=== PATIENT | female | born 1950 | race Caucasian/White ===

== ENCOUNTER 2018-07-25 05:51 | Observation (INO) ==
[~2018-07-25 05:51] MED LIST: LIDOCAINE W/ SODIUM BICARB 0.5 ML SYR ONE; Lactated Ringers 1,000 ML PRIMARY IV ONE; ceFAZolin Inj 2gm (Premix) 2 GM/50 ML BAG IV ONE
[2018-07-25] MEDS ORDERED: Lactated Ringers 1,000 ML PRIMARY IV SCH ×2 (06:00→11:30)
[2018-07-25] MEDS ORDERED: Nasal Sanitizer POPSWAB ampule 3 AMP (Nozin) PREOP DOSE ENOS SCH (06:00)
[2018-07-25] MEDS ORDERED: ceFAZolin Inj 2gm (Premix) 2 GM/50 ML BAG IV ONE (06:00)
[2018-07-25 06:17] LABS: BILIRUBIN,URINE NEGATIVE (NEG); CLARITY,URINE CLEAR (CLEAR); COLOR,URINE YELLOW (Y); GLUCOSE, URINE (UA) NEGATIVE (NEG); OCCULT BLOOD,URINE NEGATIVE (NEG); PH,URINE 5.5 (5.0-8.5); PROTEIN,URINE NEGATIVE (NEG); UROBILINOGEN,URINE 0.2 EU/dL (0.2)
[2018-07-25 06:25] LABS: RBC,URINE 0 /hpf; SQUAMOUS EPITHELIAL CELL,UR MODERATE; URINE SAMPLE TYPE CLEAN CATCH URINE
[2018-07-25] MEDS: LIDOCAINE W/ SODIUM BICARB 0.5 ML SYR SUBD ONE (06:30)
[2018-07-25] MEDS ORDERED: Sodium Chloride 0.9% vial 20 ML ONE (07:06)
[2018-07-25] MEDS ORDERED: BUPivacaine Liposome/PF (Exparel) Inj 20ml vial INFIL ONE (07:07)
[2018-07-25] MEDS ORDERED: BACITRACIN 50,000 UNIT VIAL IRRIG ONE ×2 (07:07→08:21)
[2018-07-25] MEDS ORDERED: BUPIVACAINE 0.25% W/ EPI - 10 ML VIAL ONE (07:08)
[2018-07-25] MEDS ORDERED: BUPivacaine Inj 0.5% PF (5mg/ml) 30ml vial ONE (07:12)
[2018-07-25] MEDS ORDERED: MIDAZOLAM HCL 2 MG/2 ML VIAL ONE (07:16)
[2018-07-25] MEDS ORDERED: ROCURONIUM 10 MG/1 ML - 5 ML VIAL IVP ONE (07:28)
[2018-07-25] MEDS ORDERED: Ketorolac Inj 30 MG, Morphine Inj (Ortho Cocktail) 5 MG, BUPivacaine Inj 0.25% PF 150 MG SPLASH ONE ×3 (07:30)
[2018-07-25] MEDS ORDERED: Sodium Chloride 0.9% vial 10 ML ONE (08:20)
[2018-07-25] MEDS ORDERED: ceFAZolin Inj 1 GM in Sodium Chloride 0.9% 100 ML IV ONE (08:38)
[2018-07-25] MEDS ORDERED: fentaNYL Inj 100 MCG/2 ML VIAL ONE (10:44)
--- NOTE | 2018-07-25 11:01 | ORTHO.OP ---
Surgery Date: 07/25/18 Preoperative Diagnosis: Right shoulder GH OA Postoperative Diagnosis: same Procedure: Right reverse TSA Surgeon: Juan Daniel Cheema MD Pricing Director: Sherin Cuevas PA-C Anesthesia Provider: Ishmael Carrillo MD Anesthesia Type: General, Regional Estimated Blood Loss (mL): 200 Fluids: 1500 mL Pathology: none Findings: See Operative Note Indications: See Operative Note Complications: None
[2018-07-25] MEDS ORDERED: HYDROmorphone 2 MG/1 ML IVP PRN (11:24)
[2018-07-25] MEDS ORDERED: fentaNYL Inj 100 MCG/2 ML VIAL IVP PRN (11:24)
[2018-07-25] MEDS ORDERED: LIDOCAINE W/ SODIUM BICARB 0.5 ML SYR SUBD PRN (11:24)
--- NOTE | 2018-07-25 11:30 | CRNA.PROCE ---
Nerve Block Documentation - - Safety Measures: Time Out Taken, Site Verified - - Type of Nerve Block Used: Right Interscalene Block Moniters Used During Block: SPO2, NIBP Oxygen Supplemented: Yes Sedation Used - Enter Amount in Comment Field [ANES.SEDAT]: Midazolam (mg): Yes (4mg) Skin Prep Used: ChloroPrep Draped: No Technique: Ultrasound Nerve Block Needle Used: EchoM-Audio 50 mm Stimulation Hz: 1 Stimulation Staring mA: 1 Stimulation Ending mA: 0.6 Local Anesthetic - Enter Amt in Comment Field [ANES.LOCNB]: 0.5 % Bupivacaine Plain (mL): Yes (30ml) - - PreOp Block : Time In: 07:10 PreOp Block : Time Out: 07:28 Anesthesia Time - Other Weight: 116.755 kg Height: 5 ft 4 in Body Mass Index (BMI): 44.1
--- NOTE | 2018-07-25 11:33 | CRNA.PROGR ---
Anesthesia Time - Procedure/Recovery Time Start Date: 07/25/18 End Date: 07/25/18 Anesthesia : Time In: 07:30 Anesthesia : Time Out: 11:18 Anesthesia : Total Time: 228 - Block Time PreOp Block : Time In: 07:10 PreOp Block : Time Out: 07:28 - Total Anesthesia Time Total Anesthesia Time (minutes): 228 - Other Weight: 116.755 kg Height: 5 ft 4 in Body Mass Index (BMI): 44.1 Physical Status: P3 Anesthesia Type: General Anesthesia : ET PostOp Pain Management: Brachial Plexus (Single Injection) (Brachial Plexus Block for Post op analgesia per surgeon request)
--- NOTE | 2018-07-25 11:34 | CRNA.PROGR ---
Anesthesia Recovery Phase I - Post Anesthesia Evaluation Patient's Condition on Arrival in Phase I: Stable Pain Level: 0
[2018-07-25] MEDS ORDERED: ONDANSETRON 4 MG/2 ML VIAL IVP PRN (12:36)
[2018-07-25] MEDS ORDERED: DOCUSATE 100 MG CAPSULE PO PRN (12:36)
[2018-07-25] MEDS ORDERED: BISACODYL 5 MG TABLET PO PRN (12:36)
[2018-07-25] MEDS ORDERED: LIDOCAINE HCL 2 % 10 ML JELLY URO-JECT TOPICAL PRN (12:36)
--- NOTE | 2018-07-25 14:26 | CONSULT ---
Consult Note - Consult Consult Date: 07/25/18 Reason for Consult: PostOp Consulation : Ortho Requesting Physician: Dr. Cheema Primary Care Provider: NONE NONE - History of Present Illness History of Present Illness: This is a 68 years old female with medical history significant for history of diabetes, hypertension, hypercholesterolemia, sleep apnea on oxygen at night, history of arthritis who came in to the hospital to have reverse right total shoulder arthroplasty and was done by Dr. Cheema today. The hospitalist service were consulted for management of medical issues. Patient was seen postop eratively. Patient denied complaint. There was no pain in the shoulder, nausea, pain elsewhere. HPI - History of Present Illness Date of Service: 08/01/18 Time of Service: 14:00 Past Medical History Medical History: 1. Diabetes. 2. Hypertension. 3. Hypercholesterolemia. 4. History of sleep apnea on oxygen and CPAP at night. 5. History of anxiety/depression Surgical History: 1. History of appendectomy. 2. History of hysterectomy. 3. History of deviated septum surgery. 4. History of spinal fusion Family History: Reviewed an Not Pertinent Past Social History: Does not smoke, does not drink no drugs. Lives in [place]. Tobacco Use: Never Smoker In the Past 12 Months, Have Used or Abuse Any of the Following Substance: None Alcohol Use: None Review of Systems - Review of Systems All Systems: Reviewed & No Additional Complaints Except as Stated Medication / Allergies Home Medications: Home Medications Medication Instructions Recorded Confirmed Type Aspirin [Aspir 81] 81 mg PO DAILY 07/29/11 07/25/18 History Citalopram Hydrobromide 10 mg PO DAILY 07/29/11 07/25/18 History [Citalopram Hbr] Losartan/Hydrochlorothiazide 0.5 each PO DAILY 07/29/11 07/25/18 History [HYZAAR] metFORMIN ER Tab [GLUCOPHAGE XR] 1,000 mg PO BID 07/29/11 07/25/18 History Omeprazole 20 mg PO DAILY 08/05/11 07/25/18 History Atorvastatin Calcium 1 tab PO DAILY tab 02/16/16 07/25/18 History Cholecalciferol [Vitamin D3] 1 cap PO QD cap 02/16/16 07/25/18 History Diclofenac Sodium [Diclofenac 100 mg PO BID tab 02/16/16 07/25/18 History Sodium Er] Magnesium Oxide [Magnesium] 250 mg PO QD tab 02/16/16 07/25/18 History [place]-3 Fatty Acids/Fish Oil 1 each PO QD cap 02/16/16 07/25/18 History [[place] 3 1,000 Mg Softgel] Gabapentin 600 mg PO .SEE INSTRUCTI BELOW 07/24/18 07/25/18 History Hydrocodone/Acetaminophen 1 - 2 ea PO Q4-6H PRN #70 tab 07/25/18 Rx [Hydrocodon-Acetaminoph 7.5-325] Allergies/Adverse Reactions: Allergies Allergy/AdvReac Type Severity Reaction Status Date / Time meperidine HCl [From Demerol] Allergy Severe Anaphylaxis Verified 07/24/18 10:13 cinnamon Allergy Intermediate Difficulty Verified 07/24/18 10:13 Swallowing corn Allergy Intermediate Difficulty Verified 07/24/18 10:13 Swallowing corn syrup Allergy Intermediate Difficulty Verified 07/24/18 10:13 Swallowing egg Allergy Intermediate Difficulty Verified 07/24/18 10:13 Swallowing pineapple Allergy Intermediate Difficulty Verified 07/24/18 10:13 Swallowing raspberry Allergy Intermediate Difficulty Verified 07/24/18 10:13 Swallowing walnut Allergy Difficulty Verified 07/24/18 10:13 Swallowing AXITHROMYCIN Allergy Intermediate Hives Uncoded 07/24/18 10:13 COOKED CARROTS Allergy Intermediate Difficulty Uncoded 07/24/18 10:13 Swallowing MOST FISH Allergy Intermediate Difficulty Uncoded 07/24/18 10:13 Swallowing .ALL NARCOTICS AdvReac Intermediate Other : Uncoded 07/24/18 10:17 See Comment Exam - Vitals Vital Signs: Vital Signs Temperature 98 F Temperature Source Temporal Artery Scan Pulse Rate [Pulse Oximeter 77 Left] Pulse Rate 85 Respiratory Rate 21 Blood Pressure [Left Radial 131/79 Artery] Blood Pressure 126/76 Pulse Ox 98 Oxygen Flow Rate 4 Oxygen Delivery Method Mask-Simple Height 5 ft 4 in Weight 257 lb 6.4 oz - General General Appearance: No Acute Distress, Cooperative, Obese - Head Head Exam: Normal Inspection - Eye Eye Exam: POSITIVE: Normal Appearance - ENT ENT Exam: POSITIVE: Normal Exam - Neck Neck Exam: Normal Inspection - Respiratory Respiratory Exam: POSITIVE: Clear to Auscultation - Bilaterally - Cardiovascular Cardiovascular Exam: POSITIVE: RRR - GI/Abdominal GI/Abdominal Exam: POSITIVE: Normal Bowel Sounds, Non Tender, Non Distended, Soft - Rectal Rectal Exam: POSITIVE: Deferred - External Exam: POSITIVE: Deferred - Extremities Extremities Exam: POSITIVE: Normal Inspection Additional Extremities Exam Details: Right shoulder in immobilizer. - Back Back Exam: POSITIVE: Normal Inspection - Neurological Neurological Exam: POSITIVE: Alert, CN II-XII Intact, No Facial Droop, Speech Intact / Clear Results - Labs CBC and BMP: 07/25/18 13:45 Assessment and Plan - Patient Problems (1) Hypertension Current Visit: Yes Status: Acute Comment: Resume previous medication starting tomorrow. Code(s): I10 - Essential (primary) hypertension (2) Diabetes Current Visit: Yes Status: Acute Comment: Continue same medications Code(s): E11.9 - Type 2 diabetes mellitus without complications (3) Hypercholesterolemia Current Visit: Yes Status: Acute Comment: Same med Code(s): E78.00 - Pure hypercholesterolemia, unspecified (4) Status post reverse arthroplasty of right shoulder Current Visit: Yes Status: Acute Comment: Management per Dr. Cheema, he wrote for pain medications. She said she takes the hydrocodone with Benadryl and that would help lessen the side effect of the medications. Code(s): Z96.611 - Presence of right artificial shoulder joint
--- NOTE | 2018-07-25 15:27 | DI ---
RIGHT SHOULDER, 07/25/2018 1:51 PM: Clinical History: Status post right reverse total shoulder replacement. Osteoarthritis. Previous Exam: 07/19/2018. Views: 2 views of the replaced shoulder joint. Patient is status post right reverse total shoulder joint replacement. The prosthetic joint articulat es normally. On the AP projection, there is a linear lucency extending distally from the very tip of the metallic humeral shank and a fracture cannot be excluded. Readin. Status post right reverse total shoulder joint replacement. The prosthetic joint articulates norm ally. 2. There is a linear lucency extending 2 cm distal to the very tip of the humeral component of the p rosthesis. A fracture cannot be excluded.
[2018-07-25] MEDS: ceFAZolin Inj 2gm (Premix) 2 GM/50 ML BAG IV SCH (15:38)
[2018-07-25] MEDS: Lactated Ringers 1,000 ML PRIMARY IV SCH (16:57)
[2018-07-25] MEDS: GABAPENTIN 300 MG CAPSULE PO SCH (21:10)
[2018-07-25] MEDS: metFORMIN ER 500 MG TABLET PO SCH (21:10)
[2018-07-25] MEDS: diphenhydrAMINE 25 MG CAPSULE PO PRN (21:11)
[2018-07-25] MEDS: ATORVASTATIN 40 MG TABLET PO SCH (21:11)
[2018-07-25] MEDS: HYDROcodone-APAP 7.5 MG-325 MG TABLET PO PRN (21:11)
[2018-07-26] MEDS: ceFAZolin Inj 2gm (Premix) 2 GM/50 ML BAG IV SCH (00:09)
[2018-07-26] MEDS: Lactated Ringers 1,000 ML PRIMARY IV SCH ×2 (00:10→09:21)
[2018-07-26] MEDS: KETOROLAC 15 MG/1 ML VIAL IVP PRN ×2 (01:06→10:11)
[2018-07-26] MEDS: diphenhydrAMINE 25 MG CAPSULE PO PRN ×4 (02:56→19:10)
[2018-07-26] MEDS: HYDROcodone-APAP 7.5 MG-325 MG TABLET PO PRN ×4 (02:56→19:10)
[2018-07-26 05:04] LABS: Hematocrit [HCT] 30.2 % (37.0-47.0); Hemoglobin [HGB] 8.7 g/dL (12.0-16.0); MEAN CORPUSCULAR HEMOGLOBIN 23.6 PG (27-31); MEAN CORPUSCULAR HGB CONC 28.8 g/dL (33-37); MEAN CORPUSCULAR VOLUME 82.1 FL (81-99); MEAN PLATELET VOLUME 11.2 FL (7.4-12.2); RED BLOOD COUNT 3.68 10^6/uL (4.20-5.40)
[2018-07-26] MEDS: MAGNESIUM OXIDE 400 MG TABLET PO SCH (07:00)
[2018-07-26] MEDS: metFORMIN ER 500 MG TABLET PO SCH ×2 (08:43→21:12)
[2018-07-26] MEDS: CITALOPRAM 20 MG TABLET PO SCH (08:43)
[2018-07-26] MEDS: OMEPRAZOLE 20 MG CAPSULE PO SCH (08:44)
[2018-07-26] MEDS: CHOLECALCIFEROL 1000 IU TABLET PO SCH (08:44)
[2018-07-26] MEDS ORDERED: LOSARTAN/HYDROCHLOROTHIAZIDE 50 MG/12.5 MG TABLET PO SCH (09:00)
--- NOTE | 2018-07-26 13:13 | PDOC(PROG) ---
Date of Service: 07/26/18 Time of Service: 12:30 Interval History: Subjective Patient said that as she worked with physical therapy earlier today she felt dizzy but she is not dizzy anymore. she is complaining from itching and she is attributing that to the Percocet. She said usually she takes 25-50 mg of the Benadryl with the Percocet to help with the itching. Objective : Data - Labs CBC and BMP: 07/26/18 04:10 07/26/18 04:10 Objective : Exam - General General Appearance: No Acute Distress, Cooperative - Head Head Exam: Normal Inspection - Eye Eye Exam: Normal Appearance - ENT ENT Exam: Normal Exam - Neck Neck Exam: Normal Inspection - Respiratory Respiratory Exam: Clear to Auscultation - Bilaterally - Cardiovascular Cardiovascular Exam: RRR - GI/Abdominal GI/Abdominal Exam: Normal Bowel Sounds, Non Tender, Non Distended, Soft - Rectal Rectal Exam: Deferred - External Exam: Deferred Exam: Deferred - Extremities Additional Extremities Exam Details: Right Shoulder in an immobilizer. - Neurological Neurological Exam: Alert, Oriented x 3, CN II-XII Intact, No Facial Droop, Speech Intact / Clear - Psychiatric Psychiatric Exam: Normal Affect Assessment and Plan - Patient Problems (1) Hypertension Current Visit: Yes Status: Acute Comment: Blood pressure is borderline I think I'll DC her blood pressure medications for now. We'll see what her numbers tomorrow. Code(s): I10 - Essential (primary) hypertension (2) Diabetes Current Visit: Yes Status: Acute Comment: Continue metformin Code(s): E11.9 - Type 2 diabetes mellitus without complications (3) Hypercholesterolemia Current Visit: Yes Status: Acute Comment: Same medications Code(s): E78.00 - Pure hypercholesterolemia, unspecified (4) Status post reverse arthroplasty of right shoulder Current Visit: Yes Status: Acute Comment: Continue PT and OT. Will see how she feels tomorrow if she feels better then maybe home tomorrow. Code(s): Z96.611 - Presence of right artificial shoulder joint (5) Postoperative anemia due to acute blood loss Current Visit: Yes Status: Acute Comment: She is asymptomatic after the dizziness that she had earlier which may be related to hypotension rather than anemia. I think will watch her numbers and repeat it tomorrow. Code(s): D62 - Acute posthemorrhagic anemia
--- NOTE | 2018-07-26 15:28 | PTI REPORT ---
Thank you for the referral of Kathy Velasquez. She was seen on 07/26/18 for an inpatient evaluation status post total shoulder arthroplasty. SUBJECTIVE: The patient is a 68-year-old female who underwent a total shoulder replacement by Dr. Cheema yesterday. The patient had been seen by OT for range of motion and dressing activities. PAST MEDICAL HISTORY: Past medical history can be found in the patient's medical record. OBJECTIVE FINDINGS: General observations: The patient was placed on oxygen as her oxygen saturation was very low on room air. She was on 2 liters a minute today. Bed mobility/Transfers: The patient transferred from supine to sit and from sit to stand. The patient got dizzy very quickly and even on 2 liters of oxygen, her saturation dropped into the 80s on a couple of occasions; 84% and 85%. Ambulation: The patient was able to ambulate one lap around the nurse's station with several rest breaks and was able to ascend and descend three stairs. She was a little wobbly and needed minimal assist for balance and stabilization. ASSESSMENT: The patient was very pleasant and followed instructions very well. The patient still probably needs a little bit of assistance for balance and transfers and should not be doing these things independently just yet. The patient requires a minimum of 2 liters of oxygen per minute to keep her oxygen saturation up when active. Nursing staff is going to contact Dr. Cheema to formulate a plan on whether or not she goes home today or stays the night. Short-Term Goals: To be met by discharge from inpatient: Patient will be able to transfer from bed to stand independently. Patient will be able to ambulate 300 feet with least restrictive assistive device. Long-Term Goals: To be met following discharge from inpatient: Patient may be seen by outpatient physical therapy. TREATMENT PLAN: Patient will be seen B.I.D during the week and one time per day over the weekend as an inpatient for transfer training, stairs, and ambulation activities. INITIAL TREATMENT: Treatment today consisted of the initial evaluation activities only. FRANC
--- NOTE | 2018-07-26 17:02 | PT.PROG ---
Progress Note Progress Note: S. Patient stated she is tired but she would like to get up and go for a walk. O. Patient ambulated 300 feet around the nurses station and was returned to her room where she was left in bed. A. Patient tolerated ambulation well, she required 3 short standing rest breaks, She required an increase to 3L of o2 to increase o2 sats. P. Continue POC.
[2018-07-26] MEDS: ATORVASTATIN 40 MG TABLET PO SCH (21:12)
[2018-07-26] MEDS: GABAPENTIN 300 MG CAPSULE PO SCH (21:12)
[2018-07-27 05:29] LABS: BASOPHILS # (AUTO) 0.01 10*3/UL; BASOPHILS % (AUTO) 0.1 % (0-1); EOSINOPHILS # (AUTO) 0.14 10*3/UL; EOSINOPHILS % (AUTO) 1.7 % (0-8); Hematocrit [HCT] 29.2 % (37.0-47.0); Hemoglobin [HGB] 8.5 g/dL (12.0-16.0); MEAN CORPUSCULAR HEMOGLOBIN 23.9 PG (27-31); MEAN CORPUSCULAR HGB CONC 29.1 g/dL (33-37); MEAN CORPUSCULAR VOLUME 82.3 FL (81-99); MEAN PLATELET VOLUME 11.2 FL (7.4-12.2); MONOCYTES # (AUTO) 0.74 10*3/UL (0.3-0.8); MONOCYTES % (AUTO) 8.9 % (5-15); NEUTROPHILS # (AUTO) 6.12 10*3/UL; NEUTROPHILS % (AUTO) 73.5 % (50-80); RED BLOOD COUNT 3.55 10^6/uL (4.20-5.40)
[2018-07-27 05:30] LABS: PLATELET MORPHOLOGY COMMENT NORMAL MORPHOLOGY (NORM); RBC MORPHOLOGY COMMENT NORMAL MORPHOLOGY (NORM); WBC MORPHOLOGY COMMENT NORMAL MORPHOLOGY (NORM)
[2018-07-27] MEDS: MAGNESIUM OXIDE 400 MG TABLET PO SCH (07:11)
--- NOTE | 2018-07-27 07:31 | PDOC(PROG) ---
General Note Progress Note: POD 2 Patient doing well, some dizzyness with ambulation. Relative anemia post-op noted. No apparent anesthesia related complications.
[2018-07-27] MEDS: HYDROcodone-APAP 7.5 MG-325 MG TABLET PO PRN ×2 (08:31→17:54)
[2018-07-27] MEDS: OMEPRAZOLE 20 MG CAPSULE PO SCH (08:31)
[2018-07-27] MEDS: CITALOPRAM 20 MG TABLET PO SCH (08:31)
[2018-07-27] MEDS: metFORMIN ER 500 MG TABLET PO SCH ×2 (08:31→20:41)
[2018-07-27] MEDS: CHOLECALCIFEROL 1000 IU TABLET PO SCH (08:32)
[2018-07-27] MEDS: diphenhydrAMINE 25 MG CAPSULE PO PRN ×2 (08:36→17:54)
--- NOTE | 2018-07-27 10:39 | PDOC(PROG) ---
Date of Service: 07/27/18 Time of Service: 10:45 Interval History: Subjective Patient worked with physical therapy today and she felt dizzy, apparently her oxygen sats while on 2 L dropped and she felt dizzy and then she sat down and then it picked up. She did have some fever earlier today. Feels sleepy. Objective : Data - Labs CBC and BMP: 07/27/18 04:45 07/26/18 04:10 Objective : Exam - General General Appearance: No Acute Distress, Cooperative, Morbidly Obese Additional General Exam Details: Looks sleepy - Head Head Exam: Normal Inspection - Eye Eye Exam: Normal Appearance - ENT ENT Exam: Normal Exam - Neck Neck Exam: Normal Inspection - Respiratory Additional Respiratory Exam Details: Few crackles at the bases - Cardiovascular Cardiovascular Exam: RRR - GI/Abdominal GI/Abdominal Exam: Normal Bowel Sounds, Non Tender, Non Distended, Soft, No Organomegaly - Rectal Rectal Exam: Deferred - External Exam: Deferred - Extremities Extremities Exam: Normal Inspection Additional Extremities Exam Details: Right shoulder in a brace - Neurological Neurological Exam: Oriented x 3, CN II-XII Intact, No Facial Droop, Speech Intact / Clear, Moves All Extremities Equally - Psychiatric Psychiatric Exam: Flat Affect Assessment and Plan - Patient Problems (1) Hypertension Current Visit: Yes Status: Acute Comment: We held her blood pressure medication, as her blood pressure was borderline yesterday continue holding her blood pressure medication today. Code(s): I10 - Essential (primary) hypertension (2) Diabetes Current Visit: Yes Status: Acute Comment: Same med Code(s): E11.9 - Type 2 diabetes mellitus without complications (3) Hypercholesterolemia Current Visit: Yes Status: Acute Comment: Same medication Code(s): E78.00 - Pure hypercholesterolemia, unspecified (4) Status post reverse arthroplasty of right shoulder Current Visit: Yes Status: Acute Comment: We'll cut back on the Benadryl as this maybe that's contributing to her sleepiness. She is okay with that. Code(s): Z96.611 - Presence of right artificial shoulder joint (5) Postoperative anemia due to acute blood loss Current Visit: Yes Status: Acute Comment: Hemoglobin is about 8.5 she is not having clear symptoms due to the anemia itself. She did say that she was iron deficient and the she was on supplemental before surgery. Code(s): D62 - Acute posthemorrhagic anemia (6) Fever Current Visit: Yes Status: Acute Comment: We'll do a chest x-ray since she is having hypoxia and fever and will also order a UA for her. May end up watching her another night in the hospital since she lives far away from here Code(s): R50.9 - Fever, unspecified
--- NOTE | 2018-07-27 11:01 | PT.PROG ---
Progress Note Progress Note: S. Patient stated that she is not feeling well this morning. O. Patient ambulated 150 feet in the conner and back to her room where she was left in bed. A. Patient was a little unsteady during ambulation and required frequent standing rest breaks, her o2 sats were between 92-95 during ambulation, she required min assist with bed mobility. She would continue to benefit from skilled therapy to increase strength stability at this time. P. Continue POC.
[2018-07-27 13:00] LABS: BUN/CREATININE RATIO 27.85 (6-20)
[2018-07-27] MEDS ORDERED: Sodium Chloride 0.9% 1,000 ML PRIMARY IV SCH (13:45)
[2018-07-27 13:59] LABS: BILIRUBIN,URINE NEGATIVE (NEG); CLARITY,URINE CLEAR (CLEAR); COLOR,URINE YELLOW (Y); GLUCOSE, URINE (UA) NEGATIVE (NEG); OCCULT BLOOD,URINE NEGATIVE (NEG); PROTEIN,URINE NEGATIVE (NEG); UROBILINOGEN,URINE 0.2 EU/dL (0.2)
[2018-07-27 14:01] LABS: URINE SAMPLE TYPE CLEAN CATCH URINE
--- NOTE | 2018-07-27 14:01 | DI ---
AP /LATERAL CHEST, 07/27/2018 10:33 AM : Clinical History: Fever and hypoxia following recent shoulder surgery. Previous Exam: None at this facility. Soft Tissues: On both views the patient took a shallow inspiration. No acute soft tissue abnormality. Bones: Normal. Status post right reverse total shoulder replacement. Status post left humeral head re placement. Heart: Cardiomegaly even for the shallow inspiratory effort. There is no CHF. Lungs: No infiltrates. Effusion(s): None. Mediastinum: Normal mediastinum. Nodules: No pulmonary nodules. Readin. No acute infiltrate or effusion. 2. Cardiomegaly without CHF.
--- NOTE | 2018-07-27 14:58 | OT AM DAY ---
Diagnosis : R Reverse TSA AM - Occupational Therapy S: The patient is a 68-year-old female who had a right reverse total shoulder arthroplasty. The patient reports her pain level is 5/10 on the verbal analog scale (0=no pain, 10=worst pain). The patient lives in [place] with her and she reports that her will be able to help her with most things. O: The patient was able to come from supine to sit with mod assist. While sitting edge of bed she was educated in her shoulder precautions. Her brace was adjusted to fit her appropriately. Today we started without any oxygen. The patient stood up and felt really lightheaded and dizzy so we sat her down to check her oxygen level which had dropped down to 68%. We put 2 liters of oxygen on the patient. She did get back up to the low 90s after approximately 4 minutes. The patient was able to dress self with mod assist. The patient states she has a cryo cuff from before so she did not want a cryo cuff. Because of her oxygen issues, we did have the patient practice deep breathing and the therapist stayed with the patient for 30 minutes today while going over activities. The patient completed a toilet transfer with mod assist for donning and doffing pants while on 2 liters of oxygen. A: The patient's oxygen levels are dropping. She may need to be further assessed by nursing. P: No further therapy is indicated at this time. MTDD
--- NOTE | 2018-07-27 15:07 | OT AM DAY ---
Diagnosis : Right Reverse Total Shoulder Arthroplasty AM - Occupational Therapy S: Nursing reports the patient is still here secondary to some oxygen issues. O: Today we had the patient ambulate a little in the hallway on 2 liters of oxygen. The patient's oxygen saturation did drop to 76%. The patient became very lightheaded and winded. It took her several minutes to recover and on 2 liters of oxygen she kept bouncing between 87-90%. Nursing staff said to up her to 3 liters, which we did. She did stay in the low 90s on 3 liters and ambulated approximately 50 feet back to her room, being able to stay above 90%. We had the patient sit in her chair and bumped her down to 2 liters while she was sitting to see if she could tolerate that. We did go over some dressing tasks with the patient. Her was there, so demonstration on how to don and doff the brace was completed. The patient was assessed at 2 liters and the patient was down to 87%. We had to up her to 3 liters while sitting. All of these oxygen levels were reported to Dr. Hagan and he may order an x-ray per his report. A: On the shoulder end, the patient is doing well. She needs to get her oxygen levels assessed to see what is going to be the safest for her and she needs checked for any other medical conditions that may be arising. P: Patient will be discharged from OT at this time. FRANC
--- NOTE | 2018-07-27 15:45 | PT.PROG ---
Progress Note Progress Note: S. Patient stated that she is feeling much better this afternoon. O. Patient ambulated 150 feet around the nurses station and back to her room where she was left in the restroom and nursing was notified. A. Patient tolerated ambulation much better this afternoon compared to the is morning. Patient continues to have slight balance deficits however was much more steady this afternoon compared to this morning. She would continue to benefit from skilled therapy to decrease balance deficits and safety at this time. P. Continue POC.
[2018-07-27] MEDS: ATORVASTATIN 40 MG TABLET PO SCH (20:40)
[2018-07-27] MEDS: GABAPENTIN 300 MG CAPSULE PO SCH (20:41)
[2018-07-28 06:36] VITALS: BP 143/72; RESP 22; TEMP 97.2; O2SAT 92
[2018-07-28] MEDS: MAGNESIUM OXIDE 400 MG TABLET PO SCH (07:23)
[2018-07-28 08:04] LABS: BASOPHILS # (AUTO) 0.01 10*3/UL; BASOPHILS % (AUTO) 0.1 % (0-1); EOSINOPHILS # (AUTO) 0.25 10*3/UL; EOSINOPHILS % (AUTO) 3.3 % (0-8); Hematocrit [HCT] 26.9 % (37.0-47.0); Hemoglobin [HGB] 7.9 g/dL (12.0-16.0); LYMPHOCYTES # (AUTO) 1.08 10*3/uL; MEAN CORPUSCULAR HEMOGLOBIN 24.5 PG (27-31); MEAN CORPUSCULAR HGB CONC 29.4 g/dL (33-37); MEAN CORPUSCULAR VOLUME 83.3 FL (81-99); MEAN PLATELET VOLUME 9.8 FL (7.4-12.2); MONOCYTES # (AUTO) 0.48 10*3/UL (0.3-0.8); MONOCYTES % (AUTO) 6.4 % (5-15); NEUTROPHILS # (AUTO) 5.63 10*3/UL; NEUTROPHILS % (AUTO) 75.4 % (50-80); RED BLOOD COUNT 3.23 10^6/uL (4.20-5.40)
[2018-07-28 08:06] LABS: PLATELET MORPHOLOGY COMMENT NORMAL MORPHOLOGY (NORM); RBC MORPHOLOGY COMMENT NORMAL MORPHOLOGY (NORM); WBC MORPHOLOGY COMMENT NORMAL MORPHOLOGY (NORM)
[2018-07-28 08:16] LABS: BLOOD UREA NITROGEN 24 mg/dL (7-22)
[2018-07-28] MEDS: CHOLECALCIFEROL 1000 IU TABLET PO SCH (09:07)
[2018-07-28] MEDS: metFORMIN ER 500 MG TABLET PO SCH (09:07)
[2018-07-28] MEDS: OMEPRAZOLE 20 MG CAPSULE PO SCH (09:08)
[2018-07-28] MEDS: CITALOPRAM 20 MG TABLET PO SCH (09:08)
[2018-07-28] MEDS: diphenhydrAMINE 25 MG CAPSULE PO PRN (09:12)
[2018-07-28] MEDS: HYDROcodone-APAP 7.5 MG-325 MG TABLET PO PRN (09:12)
--- NOTE | 2018-07-28 10:24 | DCSUMMARY ---
Hospitalization Summary Admit Date: 12/25/2018 Discharge Date: 07/28/18 Hospital Course: Discharge diagnoses 1. Status post reverse total right shoulder replacement 2. History of diabetes 3. History of hypertension 4. History of hypercholesterolemia 5. History of sleep apnea on oxygen and CPAP at night 6. History of anxiety depression 7. History of iron deficiency anemia with some worsening as a result of postoperative blood loss Hospital course This is a 68 years old female with medical history significant for history of diabetes, hypertension, hypercholesterolemia, sleep apnea on oxygen at night and history of arthritis who came in to have reverse right total shoulder surgery and was done by Dr. Cheema the hospitalist service were consulted for management of medical issues. Initially she was seen postoperatively and she denied symptoms. We put her on her usual meds. The next day she did have some dizziness, when she walk with physical therapy however her saturation did drop and she said that happened to her when she had her surgery back in February. She said she needed to be on oxygen for 2 weeks during the daytime in addition at nighttime. In addition we did cut back on her pain medication and Benadryl. She required the Benadryl because she had itching with narcotics. While She did have a drop in her hemoglobin however her baseline at least what I have was 9.6 and on talking to the patient she said she has a history of iron deficiency anemia and was diagnosed just few days when she had blood test prior to the surgery. She did not have symptoms that I would attribute to the anemia to require blood transfusion. We thought that we put her on iron in addition to multivitamins. She did have an episode of fever that the we did a chest x-ray there was no evidence of for infiltrate, UA was normal. Her white count was normal. On the day of discharge she was feeling better there was no white count, her symptoms resolved her exam was unremarkable we thought that she could be discharged home and follow-up with her primary. Because of her low hemoglobin I did talk to her about following with her primary in to recheck on her hemoglobin count. We did discharge her on some iron pills. She did not have symptoms on the day of discharge to indicate symptomatic anemia that would require transfusion. Discharge suction Diet regular Activity as tolerated Medications Current Medication(s) Medication Instructions Recorded Confirmed Type Aspirin [Aspir 81] 81 mg PO DAILY 07/29/11 07/25/18 History Citalopram Hydrobromide 10 mg PO DAILY 07/29/11 07/25/18 History [Citalopram HBr] Losartan/Hydrochlorothiazide 1 each PO DAILY 07/29/11 07/26/18 History [HYZAAR] metFORMIN ER Tab [Glucophage XR 1,000 mg PO BID 07/29/11 07/25/18 History Tab] Omeprazole 20 mg PO DAILY 08/05/11 07/25/18 History Atorvastatin Calcium 1 tab PO DAILY tab 02/16/16 07/25/18 History Cholecalciferol [Vitamin D3] 1 cap PO QD cap 02/16/16 07/25/18 History Diclofenac Sodium [Diclofenac 100 mg PO BID tab 02/16/16 07/25/18 History Sodium ER] Magnesium Oxide [Magnesium] 250 mg PO QD tab 02/16/16 07/25/18 History [place]-3 Fatty Acids/Fish Oil 2 each PO DAILY cap 02/16/16 07/26/18 History [[place] 3 1,000 mg Softgel] Gabapentin 600 mg PO BID 07/24/18 07/26/18 History Hydrocodone/Acetaminophen 1 - 2 ea PO Q4-6H PRN #70 tab 07/25/18 Rx [Hydrocodon-Acetaminoph 7.5-325] Ferrous Fumarate [Hemocyte] 324 mg PO DAILY #30 tab 07/28/18 Rx Follow-up with PCP 1-2 weeks, with Dr. Cheema Condition at discharge was stable for discharge Exam - Vitals Vital Signs: Vital Signs Temperature 97.2 F Temperature Source Temporal Artery Scan Pulse Rate [Pulse Oximeter 87 Left] Pulse Rate 85 Respiratory Rate 22 Blood Pressure [Left Radial 143/72 Artery] Blood Pressure 126/76 Pulse Ox 92 Oxygen Flow Rate 2 Oxygen Delivery Method Nasal Cannula Height 5 ft 4 in Weight 268 lb 3.2 oz - General General Appearance: No Acute Distress, Cooperative, Morbidly Obese - Head Head Exam: Normal Inspection - Eye Eye Exam: POSITIVE: Normal Appearance - ENT ENT Exam: POSITIVE: Normal Exam - Neck Neck Exam: Normal Inspection - Respiratory Respiratory Exam: POSITIVE: Clear to Auscultation - Bilaterally - Cardiovascular Cardiovascular Exam: POSITIVE: RRR - GI/Abdominal GI/Abdominal Exam: POSITIVE: Normal Bowel Sounds, Non Tender, Non Distended, Soft, No Organomegaly - Rectal Rectal Exam: POSITIVE: Deferred - External Exam: POSITIVE: Deferred - Extremities Extremities Exam: POSITIVE: Normal Inspection Additional Extremities Exam Details: Her right arm in a brace - Back Back Exam: POSITIVE: Normal Inspection - Neurological Neurological Exam: POSITIVE: Alert, Oriented x 3, CN II-XII Intact, No Facial Droop, Speech Intact / Clear Patient Problems - Patient Problem List (1) Hypertension Status: Acute Code(s): I10 - Essential (primary) hypertension Category: Medical (2) Diabetes Status: Acute Code(s): E11.9 - Type 2 diabetes mellitus without complications Category: Medical (3) Hypercholesterolemia Status: Acute Code(s): E78.00 - Pure hypercholesterolemia, unspecified Category: Medical (4) Status post reverse arthroplasty of right shoulder Status: Acute Code(s): Z96.611 - Presence of right artificial shoulder joint Category: Surgical (5) Postoperative anemia due to acute blood loss Status: Acute Code(s): D62 - Acute posthemorrhagic anemia Category: Medical (6) Fever Status: Acute Code(s): R50.9 - Fever, unspecified Category: Medical
--- NOTE | 2018-07-28 11:17 | PT.PROG ---
Progress Note Progress Note: S. Patient stated that she is feeling much better this morning. O. Patient ambulated 80 feet to the stair well then ascended and descended 7 stairs then ambulated 80 feet around the nurses station and back to her room where she was left in bed with alarm and call light. A. Patient tolerated ambulation and stair training well, she continues to have slight shortness of breath however is making gains with stability and safety at this time. P. Patient has met all goals at this time.
== END 2018-07-28 12:12 | disposition home or self-care (01) ==
LOC: MED/SURG 05:51 → OR 05:51 → OPS 06:02 → EDSTATUS 07:30 → MED/SURG 12:34
PROVIDERS: ADMIT Orthopaedic Surgery; ATTEND Orthopaedic Surgery